=== PATIENT | male | born 1985 | race Caucasian/White ===

== ENCOUNTER 2024-06-10 18:19 | Emergency (ER) | payer MEDICAID, SELFPAY ==
[2024-06-10 18:22] VITALS: BP 128/83; PULSE 93; RESP 16; TEMP 36.4; O2SAT 100; BMI 23.6
--- NOTE | 2024-06-10 18:49 | EX.ED.DYSGE1 ---
HPI History of Present Illness Chief Complaint: Abscess Informant: patient Narrative Narrative: Healthy 38-year-old male 2-3 days gradual onset painful swollen area anterior neck without spontaneous drainage. He states yesterday another small similar area started just above this as a lynn and now is also getting swollen, and he also is having some sore redness going down into the right proximal clavicle area/upper chest. No systemic symptoms or fevers/chills. Started amoxicillin recently at the request of the dentist because of a dental issue even though he had a declared penicillin allergy in the past, however he has not developed any hives from this. But since he developed this painful area he stopped the amoxicillin yesterday. He was not sure if it was related or not. He has had MRSA in the past. Went to urgent care prior to this but they directed him here to the ER. [facility] Medical History (Updated 06/10/24 @ 19:[address] Rome Diop MD) History of MRSA infection Home Medications ?Medication ?Instructions ?Recorded ?Last Taken ?Type sulfamethoxazole 800 1 tab PO BID #20 TABLETS 06/10/24 Unknown Rx mg-trimethoprim 160 mg tablet Allergy/AdvReac Type Severity Reaction Status Date / Time clindamycin Allergy Severe Hives Verified 06/10/24 18:22 Penicillins (PCN) Allergy Severe Hives Verified 06/10/24 18:22 amlodipine AdvReac Severe Swelling Verified 06/10/24 18:22 hydrocodone AdvReac Severe Hives Verified 06/10/24 18:22 Social History Smoking Status: Unknown if ever smoked ROS ROS ED Constitutional Constitutional ED: Denies chills or fever(s) Musculoskeletal Musculoskeletal: Reports neck pain; Denies back pain Integumentary Reports abscess and rash Neurologic Neurologic: Denies headache(s), paresthesias or weakness EXAM Physical Exam Const Vital Signs: 06/10/24 18:22 Temperature 97.6 F L Temperature Source Oral Pulse Rate 93 Respiratory Rate 16 Blood Pressure 128/83 H Blood Pressure Mean 98 Pulse Ox 100 Oxygen Delivery Method Room Air Positive well nourished and well developed General Appearance ED: well developed and NAD HEENT Reports moist mucous membranes Eyes PERRL and EOMs intact bilaterally Neck supple Neck Narrative: There is a 2 cm abscess without spontaneous discharge expressible very tender and erythematous anterior neck, it is left of the midline, and it is within area of his rouse where he is shaved recently. Small area just above this that is confluent with that that is not fluctuant but the large area is. There is some cellulitis emanating caudally and to the right from this. It is not indurated or abscessed or significantly tender. General: tenderness Resp normal respiratory effort Neuro oriented x3, CN's II-XII intact bilaterally and no sensory deficits noted Motor Exam: strength 5/5 throughout Psych mental status grossly normal Skin Skin Narrative: 2 cm abscess left anterior neck along with some surrounding cellulitis spreading caudally into the right, see above no other rashes MDM MDM MDM Narrative Medical decision making narrative: Patient was amenable to needle aspiration of this abscess. We discussed the pros and cons of this versus open incision and drainage, basically the cons are aesthetic. I probed in multiple different directions to ensure draining the entire area if there were multiple cavities, it is still swollen but less so. I offered prescription antibiotics regardless, but also to open the area, or he could come back if he gets worse. He opted to try the antibiotics and come back if he gets worse. I advised him to continue the amoxicillin if he is truly having no allergic reaction to it for his dental issue, as that is better coverage. Procedures Other Procedures Procedure(s): Simple abscess drainage: Neck abscess anesthetized with 3 cc of plain 1% lidocaine after chlorhexidine prep, and then aspirated with an 18-gauge needle from the lateral aspect which is where it appeared to be pointing and where it started according to the patient, aspirated 1.5 cc of pus in addition to small amount of bleeding. I probed and deloculated several different areas, clearing the needle of blood clot and tissue to ensure I was able to aspirate pus if there is any more there. There is none. Patient expressed a little bit of blood from the area and did some gauze, the area was then cleansed and dressed with bacitracin tolerated well no complications. Discharge Plan Triage Chief Complaint: Abscess ED Provider: Rome Diop Dx/Rx/DC Orders Clinical Impression: Cutaneous abscess of neck Instructions: ED Abscess Incision And Drainage Prescriptions: New sulfamethoxazole-trimethoprim 800-160 mg tablet 1 tab PO BID Qty: 20 0RF Primary Care Provider: Care Physician,No Primary Referrals: NOT,DEFINED [Non-Staff] - (return to ER if area worsening despite antibiotics) Print Language: Cameroonian Disposition Disposition: Home, Self Care
[2024-06-10] MEDS: Smz/Tmp Ds Tablet 1 TABLET PO (19:07)
--- NOTE | 2024-06-10 19:26 | CM.ED ---
Social Work Reason for visit: No PCP listed Patient confirmed that he does not have a PCP, resource list of local physician provided. Patient appreciative of same. Balbina Daniels, LE[employer], [employer]
[2024-06-10] MEDS: Lidocaine 1% (20 ml mdv) 20 ML Vial INFILT (19:51)
[2024-06-10 19:53] VITALS: BP 121/78; PULSE 75; RESP 18; TEMP 36.8; O2SAT 100
== END 2024-06-10 19:56 | disposition home or self-care (01) ==
PROVIDERS: Emergency Provider Emergency Medicine; Visit Provider Emergency Medicine
DX: L02.11 Cutaneous abscess of neck (principal); L03.221 Cellulitis of neck
CPT/HCPCS: 10160; 99283

== ENCOUNTER 2025-05-11 20:23 | Emergency (ER) | payer MEDICAID, SELFPAY ==
[2025-05-11 20:23] VITALS: BP 136/87; PULSE 55; RESP 19; TEMP 36.5; O2SAT 100; BMI 20.9
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
--- NOTE | 2025-05-11 21:07 | EDS_ITS ---
HPI History of Present Illness Chief Complaint: Dental Narrative Narrative: Chief complaint and HPI: 39-year-old male presents for evaluation of left lower dental infection. Patient states he has not seen a dentist in quite a while. States a couple days ago he developed left lower dental pain. Called the dentist and he cannot be seen for a month. They recommend him going to the emergency department. He denies any fever, chills, nausea, vomiting, shortness of breath, difficulty speaking, difficulties tolerating secretions. Eating and drinking well. Review of systems: See HPI Medications: As listed on the chart Allergies: As listed on the chart PFSH: Per chart Vital signs: As listed on the chart. Reviewed. Physical exam: Gen: A&O x3, NAD Head: Normocephalic, atraumatic Eyes: No sclera icterus, conjunctiva clear, PERRL, EOMI ENT: TMs clear BL, moist mucous membranes, posterior oropharynx unremarkable, uvula midline, tonsils not enlarged, patient has poor dentition with multiple dental caries and fractured teeth. He has pain located at tooth #22. Mild gingiva swelling. No dental abscess. No tongue enlargement. No oral swelling. No submandibular/sublingual swelling. Tolerating secretions. Normal phonation. Neck: Trachea midline, No JVD, Full ROM, No meningismus CV: RRR, no murmurs Resp: Lungs CTA BL, no w/r/c, no stridor Psych: Cooperative, appropriate mood and affect [facility] Medical History History of MRSA infection Home Medications ?Medication ?Instructions ?Recorded ?Last Taken ?Type NK 05/11/25 Unknown History Allergy/AdvReac Type Severity Reaction Status Date / Time clindamycin Allergy Severe Hives Verified 05/11/25 20:24 Penicillins (PCN) Allergy Severe Hives Verified 05/11/25 20:24 amlodipine AdvReac Severe Swelling Verified 05/11/25 20:24 hydrocodone AdvReac Severe Hives Verified 05/11/25 20:24 sulfamethoxazole (From AdvReac Other Verified 05/11/25 20:24 Bactrim) trimethoprim (From Bactrim) AdvReac Other Verified 05/11/25 20:24 Social History Smoking Status: Current every day smoker tobacco type: e-cigarettes EXAM Physical Exam Const Vital Signs: 05/11/25 20:23 Temperature 97.7 F L Temperature Source Oral Pulse Rate 55 L Respiratory Rate 19 H Blood Pressure 136/87 H Blood Pressure Mean 103 Pulse Ox 100 Oxygen Delivery Method Room Air MDM MDM MDM Narrative Medical decision making narrative: 39-year-old male presents for evaluation of left lower dental infection. Patient states he has not seen a dentist in quite a while. States a couple days ago he developed left lower dental pain. Called the dentist and he cannot be seen for a month. They recommend him going to the emergency department. He denies any fever, chills, nausea, vomiting, shortness of breath, difficulty speaking, difficulties tolerating secretions. Eating and drinking well. On presentation, patient is afebrile. See physical exam findings. Differential diagnosis includes but is not limited to dental infection, dental carry. No abscess for incision and drainage. Patient has multiple allergies to antibiotics. States he cannot take clindamycin, penicillins, Bactrim. This limits the patient's antibiotics to doxycycline. First dose given here. Will treat with a 7-day course. Follow-up with a dentist. Ice as needed for swelling. Tylenol Motrin for pain. Return back to ED if symptoms change or worsen. He confirmed understand the plan. Patient able to discharge home. Impression: 1. Left lower dental infection 2. Multiple dental caries and chronic fractured teeth Discharge Plan Triage Chief Complaint: Dental ED Provider: Selvin Cooley Dx/Rx/DC Orders Prescriptions: No Action NK Primary Care Provider: Care Physician,No Primary Referrals: Care Physician,No Primary [Primary Care Provider, Medical] Print Language: Bahamian
[2025-05-11 21:20] VITALS: BP 136/87; PULSE 55; RESP 19; TEMP 36.5; O2SAT 100
== END 2025-05-11 21:23 | disposition home or self-care (01) ==
PROVIDERS: Emergency Provider Surgery; Visit Provider Surgery
DX: K04.7 Periapical abscess without sinus (principal); S02.5XXA Fracture of tooth (traumatic), initial encounter for closed fracture; K02.9 Dental caries, unspecified; F17.290 Nicotine dependence, other tobacco product, uncomplicated; X58.XXXA Exposure to other specified factors, initial encounter
CPT/HCPCS: 99282